=== PATIENT | male | born 1950 | race Caucasian/White ===

== ENCOUNTER 2017-06-15 08:15 | Inpatient (IN) | payer OTHER ==
--- NOTE | 2017-05-20 11:34 | PAT Medication Instructions ---
Service Date May 20, 2017. Current Home Medication List Aspirin (Aspirin Ec), 81 MG PO QPM Insulin Detemir (Levemir), 35 UNITS SQ QAM Insulin Detemir (Levemir), 30 UNITS SQ QPM Lisinopril (Zestril), 2.5 MG PO QPM Multivitamin (Multivitamin), 1 TAB PO QPM Simvastatin (Zocor), 10 MG PO QPM Medication Instructions For Your Scheduled Surgery - Hold the following medications the night before surgery: Lisinopril (Zestril), 2.5 MG PO QPM - Take the following medications as scheduled the night before surgery: Aspirin (Aspirin Ec), 81 MG PO QPM Insulin Detemir (Levemir), 30 UNITS SQ QPM Multivitamin (Multivitamin), 1 TAB PO QPM Simvastatin (Zocor), 10 MG PO QPM NOTHING TO EAT OR DRINK AFTER MIDNIGHT - For Insulin Dependent Diabetic patients: Test blood sugar A.M. of surgery. - If BLOOD SUGAR IS GREATER THAN 150, take half of your regular dose of: Insulin Detemir (Levemir) -- TAKE 17 UNITS - If BLOOD SUGAR IS LESS THAN 150, do not take any: Insulin Detemir ( Levemir) If you have any questions please call us at [phone] or [phone] or [phone]
--- NOTE | 2017-05-20 12:16 | DIAGNOSTIC IMAGING REPORT ---
CHEST 2 VIEWS ROUTINE CLINICAL HISTORY: 66 years-old Male presenting with preoperative assessment. TECHNIQUE: PA and lateral views of the chest were obtained. COMPARISON: None. FINDINGS: Cardiomediastinal silhouette normal. Suture margin noted in the left upper lobe. No focal opacity. No large effusion or pneumothorax. Osseous structures normal. Upper abdomen normal. IMPRESSION: 1. No acute cardiopulmonary disease. Electronically signed by: Luis Ness M.D. 05/20/2017 12:15 PM Dictated Date/Time: 05/20/2017 12:10 PM
[2017-05-20 12:23] LABS: BASO % 0.3 %; BASO ABS # 0.02 K/uL (0-0.2); EOS % 0.7 %; EOS ABS # 0.05 K/uL (0-0.5); HEMATOCRIT 44.3 % (42-52); HEMOGLOBIN 15.3 g/dL (14.0-18.0); IG# 0.02 K/uL (0.00-0.02); LYMPH % 15.3 %; LYMPH ABS # 1.05 K/uL (1.2-3.4); MEAN CELL VOLUME 92.1 fL (80-100); MEAN CORPUSCULAR HEMOGLOBIN 31.8 pg (25-34); MEAN CORPUSCULAR HGB CONC 34.5 g/dl (32-36); MEAN PLATELET VOLUME 10.8 fL (7.4-10.4); MONO % 6.9 %; MONO ABS # 0.47 K/uL (0.11-0.59); NEUT % 76.5 %; NEUT ABS # 5.24 K/uL (1.4-6.5); PLATELET COUNT 246 K/uL (130-400); RED CELL DISTRIBUTION WIDTH CV 12.4 % (11.5-14.5); RED CELL DISTRIBUTION WIDTH SD 42.1 fL (36.4-46.3); WHITE BLOOD COUNT 6.85 K/uL (4.8-10.8)
[2017-05-20 13:13] LABS: CALCIUM 9.6 mg/dl (8.5-10.1); CREATININE 1.22 mg/dl (0.60-1.40); POTASSIUM 5.1 mmol/L (3.5-5.1)
[2017-05-20 13:18] LABS: HEMOGLOBIN A1C 8.7 % (4.5-5.6)
[2017-06-15] VITALS (10 sets, daily range): BP systolic 103–137; BP diastolic 63–87; PULSE 70–115; TEMP 36.3–36.8; O2SAT 94–97
[~2017-06-15] VITALS: Ht 182.9 cm; Wt 100.1 kg
[~2017-06-15 08:15] MED LIST: ACETAMINOPHEN 500 MG TAB PO SCH; ASPI81TA28 PO; CEFAZOLIN 2000MG IV PUSH 15 ML IV SCH; CeleBREX 200 MG CAP PO SCH; GABAPENTIN 300 MG CAP PO SCH; LACTATED RINGER'S 1000ML 1,000 ML IV SCH; LISI-729 PO; LVMI SQ; MULT-506 PO; SIMV10TA2 PO; [UNRECOGNIZED DRUG - REMARK] SCH
[2017-06-15] MEDS ORDERED: MIDAZOLAM HCL 1 MG/ML 2ML VIAL ONE (09:45)
[2017-06-15] MEDS ORDERED: FENTANYL CITRATE INJ 50 MCG/1 ML 2 ML VIAL ONE ×4 (09:45→11:58)
--- NOTE | 2017-06-15 10:05 | History & Physical Bridge Note ---
H&P Re-Evaluation Bridge Note: I have examined the patient, reviewed the History & Physical and in the interval since the performance of the History & Physical I have noted the following changes of clinical significance: No changes noted
--- NOTE | 2017-06-15 10:06 | History and Physical ---
History & Physical Date Jun 15, 2017. Chief Complaint Back and leg pain History of Present Illness The patient is a 66 year old male with complaints of back and leg pain Additional History Hepatic Disease: No Endocrine Disorder: No Kidney Disease: No Hypertension: Yes Heart Disease: No Bleeding Tendencies: No Infectious Diseases: No Other: Diabetes Allergies Coded Allergies: No Known Allergies (Unverified , 06/15/17) Home Medications Scheduled Aspirin (Aspirin Ec), 81 MG PO QPM Insulin Detemir (Levemir), 35 UNITS SQ QAM Insulin Detemir (Levemir), 30 UNITS SQ QPM Lisinopril (Zestril), 2.5 MG PO QPM Multivitamin (Multivitamin), 1 TAB PO QPM Simvastatin (Zocor), 10 MG PO QPM Physical Examination Skin: warm/dry, no rash Eyes: normal inspection, EOMI, sclerae normal ENT: normal ENT inspection, pharynx normal Head: normocephalic, atraumatic Neck: supple, no adenopathy, trachea midline Respiratory/Chest: lungs clear, normal breath sounds, no respiratory distress Cardiovascular: regular rate, rhythm, no edema, no murmur Abdomen / GI: normal bowel sounds, non tender Back: normal inspection Extremities: normal inspection, normal range of motion Neurologic/Psych: no motor/sensory deficits, alert, normal reflexes, oriented x 3 Diagnosis Lumbar spinal stenosis with spondylolisthesis Plan of Treatment Lumbar decompression and fusion L3-S1
[2017-06-15] MEDS ORDERED: BUPIVACAINE/EPINEPHRINE 0.5% MPF 1:200,000 30 ML VIAL ONE (10:21)
[2017-06-15] MEDS ORDERED: BACITRACIN 50000 UNIT VIAL ONE (10:21)
[2017-06-15] MEDS ORDERED: HYDROmorphone INJ 2 MG/ML SYR/VIAL ONE ×3 (10:55→13:01)
[2017-06-15] MEDS ORDERED: LIDOCAINE HCL 2% 2 ML VIAL (20MG/ML) ONE (12:36)
[2017-06-15] MEDS ORDERED: ONDANSETRON INJ 2 MG/ML 2 ML VIAL ONE (12:36)
[2017-06-15] MEDS ORDERED: ROCURONIUM BROMIDE 10 MG/ML 5 ML VIAL IV ONE (12:36)
[2017-06-15] MEDS ORDERED: EpHEDrine SULFATE 50MG/5ML SYR ONE ×2 (12:36→13:03)
[2017-06-15] MEDS ORDERED: PROPOFOL IV EMULSION 10 MG/ML 20 ML VIAL IV ONE (12:36)
[2017-06-15] MEDS ORDERED: FLOSEAL HEMOSTATIC MATRIX 10ML TOP ONE (12:43)
--- NOTE | 2017-06-15 12:47 | [facility] Operative Report ---
Operative Report Operative Date Jun 15, 2017. Pre-Operative Diagnosis Lumbar spinal stenosis with spondylolisthesis Post-Operative Diagnosis Lumbar spinal stenosis with spondylolisthesis Procedure(s) Performed 1. Lumbar decompression medial facetectomies foraminotomies L2-3 L3-4 L4-5 L5-S1. #2 posterior spinal fusion L3-4 L4-5 L5-S1. #3 placement of posterior segmental instrumentation L3-S1. #4 interbody fusion L5-S1. #5 placement peek cage 14 x 26 mm at L5-S1. #6 placement of locally harvested morselized autograft in the posterior lateral gutters. #7 placement of infuse collagen sponge, Nast graft in the posterior lateral gutters and ostial amp in the interbody space. Surgeon Dr. Estiven Ferreira Dairy Lab Technician Surgeon(s) Parisa Cornell PA-C Estimated Blood Loss 450 mL Findings Severe spinal stenosis Specimens No pathology specimens per surgeon Anesthesia Type General Description of Procedure Patient was met with preoperatively case discussed all questions addressed. After informed consent obtained patient was taken to the operative suite underwent intubation and placed in a prone position on the José Miguel table on top of the [place]on frame. All bony prominences well-padded eyes inspected to ensure no external pressure placed upon them. This point the lumbar spine was prepped and draped in normal sterile fashion. Sharp dissection with the assistance of Bovie cautery was performed on July exposing the lamina and transverse processes of L3-L4-L5 and sacral ala bilaterally. From a caudal to cephalad fashion complete laminectomy of L5 L4 L3 and partial laminectomy of L2 was performed addressing severe lateral recess and foraminal stenosis. Pedicle screws were then placed in L3-L4-L5 and S1 levels bilaterally with the assistance of fluoroscopy and the appropriate size benjamin placed. Through a trans- foraminal put on left complete discectomy of L5-S1 was performed endplates created to subcortical bleeding bone and a 14 x 26 mm peek cage filled with ostium bone graft tapped in position. The rods were then locked in final position bilaterally. Cross-link locked into position. Transverse processes of L3-L4-L5 and the sacral ala burred to subcortical bleeding bone. Infuse collagen sponge master graft and locally harvested morselized autograft placed in the posterior lateral gutters. A 15 round HINA drain was inserted. Incision was closed with 1 Vicryl fascia 2-0 Vicryl substantially 4-0 Monocryl for fashion closure Steri-Strips sterile dressings placed. Patient will continue PACU stable condition. Please note Parisa Cornell was present throughout the entire procedure involved in patient positioning complex portions of the surgery and fashion closure. I attest to the content of the Intraoperative Record and any orders documented therein. Any exceptions are noted below.
[2017-06-15] MEDS ORDERED: SODIUM CHLORIDE 0.9% 1000ML 1,000 ML IV SCH (12:48)
--- NOTE | 2017-06-15 12:51 | DIAGNOSTIC IMAGING REPORT ---
LUMBAR SPINE 2 OR 3 VIEW CLINICAL HISTORY: L3-L5 DECOMP/FUSION/INTERBODY operative fusion TECHNIQUE: Image intensifier COMPARISON STUDY: None FINDINGS: Findings consistent with image intensifier utilization for an L3-S1 laminectomy and fusion. A disc spacer present at L5-S1. Alignment is anatomic. IMPRESSION: Anatomic alignment post L3-S1 decompression laminectomy and fusion. The above report was generated using voice recognition software. It may contain grammatical, syntax or spelling errors. Electronically signed by: Yousif Briscoe M.D. 06/15/2017 12:50 PM Dictated Date/Time: 06/15/2017 12:49 PM
[2017-06-15] MEDS ORDERED: FAMOTIDINE 20 MG TAB PO PRN (13:00)
[2017-06-15] MEDS ORDERED: NALOXONE HCL 0.4 MG/1 ML VIAL/CARP IV PRN ×2 (13:00)
[2017-06-15] MEDS ORDERED: ONDANSETRON INJ 2 MG/ML 2 ML VIAL IV PRN ×2 (13:00→13:45)
[2017-06-15] MEDS ORDERED: SOD PHOSPHATE/SOD BIPHOSPHATE ENEMA 132 ML BTL PR PRN (13:00)
[2017-06-15] MEDS ORDERED: DO NOT ADMINISTER FLU VACCINE PRN (13:00)
[2017-06-15] MEDS ORDERED: LORAZEPAM INJ 0.5 MG in SYRINGE 0.75 ML IV PRN (13:00)
[2017-06-15] MEDS ORDERED: hydrOXYzine HCL 25 MG TAB PO PRN (13:00)
[2017-06-15] MEDS ORDERED: DO NOT ADMINISTER PNEUMOCOCCAL VACCINE PRN (13:00)
[2017-06-15] MEDS ORDERED: PROMETHAZINE HCL INJ 12.5 MG in SODIUM CHLORIDE 0.9% 50ML 50 ML IV PRN (13:00)
[2017-06-15] MEDS ORDERED: LORAZEPAM 0.5 MG TAB PO PRN (13:00)
[2017-06-15] MEDS ORDERED: ALUMINUM/MAGNESIUM SUSP 30 ML UDC PO PRN (13:00)
[2017-06-15] MEDS ORDERED: ACETAMINOPHEN IV 100 ML IV PRN (13:00)
[2017-06-15] MEDS ORDERED: ACETAMINOPHEN 500 MG TAB PO PRN (13:00)
[2017-06-15] MEDS ORDERED: BISACODYL 10 MG SUPP PR PRN (13:00)
[2017-06-15] MEDS ORDERED: MAGNESIUM HYDROXIDE SUSP 30 ML UDC PO PRN (13:00)
[2017-06-15] MEDS ORDERED: METOCLOPRAMIDE HCL INJ 5 MG/ML 2 ML VIAL IV PRN (13:00)
[2017-06-15] MEDS ORDERED: NEOSTIGMINE METHYLSULFATE 1 MG/ML 10ML VIAL ONE (13:03)
[2017-06-15] MEDS ORDERED: KETOROLAC TROMETHAMINE 30 MG/ML VIAL ONE (13:03)
[2017-06-15] MEDS ORDERED: GLYCOPYRROLATE INJ 0.2 MG/ML VIAL ONE (13:03)
[2017-06-15] MEDS ORDERED: PHENYLEPHRINE 100MCG/ML 5ML SYR ONE (13:03)
[2017-06-15] MEDS ORDERED: ESMOLOL HCL 10 MG/ML 10 ML VIAL ONE (13:19)
[2017-06-15] MEDS: HYDROmorphone HCL 0.5MG/ML 50 ML CASSETTE IV PRN ×3 (13:29→22:57)
[2017-06-15] MEDS ORDERED: FENTANYL CITRATE INJ 50 MCG/1 ML 2 ML VIAL IV PRN (13:45)
[2017-06-15] MEDS ORDERED: EpHEDrine SULFATE INJ 50 MG/ML AMP IV PRN (13:45)
[2017-06-15] MEDS ORDERED: MEPERIDINE HCL 25 MG/ML CARP IV PRN (13:45)
[2017-06-15] MEDS ORDERED: ATROPINE SULFATE 0.1 MG/ML 5ML SYR IV PRN (13:45)
[2017-06-15] MEDS ORDERED: LABETALOL HCL IV 5 MG/ML 20ML IV PRN (13:45)
[2017-06-15] MEDS ORDERED: HYDROmorphone INJ 0.5 MG/0.5 ML SYR IV PRN (13:45)
--- NOTE | 2017-06-15 14:56 | Anesthesiology Progress Note ---
Anesthesia Post Op Note Date & Time Jun 15, 2017 at 14:56 Vital Signs Pain Intensity: 0.0 Vital Signs Past 12 Hours Date Time Temp Pulse Resp B/P (MAP) Pulse Ox O2 Delivery O2 Flow Rate FiO2 06/15/17 14:20 36.5 88 18 123/68 (86) 97 Nasal Cannula 4.0 06/15/17 14:00 36.5 87 16 123/73 96 Nasal Cannula 4 06/15/17 13:50 83 16 125/76 96 Nasal Cannula 4 06/15/17 13:40 68 16 132/76 98 Nasal Cannula 4 06/15/17 13:30 84 16 132/75 98 Oxymask 10 06/15/17 13:20 87 16 123/82 98 Oxymask 10 06/15/17 13:14 36.4 88 16 141/67 99 Oxymask 10 06/15/17 08:52 36.6 70 20 137/87 94 Room Air Notes Mental Status: alert / awake / arousable, participated in evaluation Pt Amnestic to Procedure: Yes Nausea / Vomiting: adequately controlled Pain: adequately controlled Airway Patency, RR, SpO2: stable & adequate BP & HR: stable & adequate Hydration State: stable & adequate Anesthetic Complications: no major complications apparent
[2017-06-15] MEDS: SODIUM CHLORIDE 0.9% 1000ML 1,000 ML IV SCH ×2 (15:18→22:00)
[2017-06-15] MEDS ORDERED: GLUCOSE 40% GEL 15 GM TUBE PO PRN (16:30)
[2017-06-15] MEDS ORDERED: GLUCAGON FOR INJ 1 MG VIAL SQ PRN (16:30)
[2017-06-15] MEDS ORDERED: DEXTROSE 50% 50 ML SYR IV PRN (16:30)
[2017-06-15] MEDS ORDERED: GLUCOSE 10 TABS/TUBE PO PRN (16:30)
--- NOTE | 2017-06-15 17:44 | Medical Consult ---
Consultation Date of Consultation: Jun 15, 2017. Attending Physician: Estiven Ferreira D.O. Reason for Consultation: Medical management History of Present Illness Pt is 66 y/o M with PMH DM II, HLD, spinal stenosis seen in medical consult after lumbar decompression and spinal fusion today by Dr. Ferreira. At this time patient states pain is well controlled. Reports no paresthesias or numbness of lower extremities and is moving lower extremities without difficulty. Denies any nausea or vomiting he is drinking water without difficulty. Last BM yesterday. Denies fever/chills, diaphoresis, ZUNIGA, dizziness, syncope, vision changes, neck pain, CP, SOB, orthopnea, palpitations, cough, sore throat, choking, otalgia, rhinorrhea, abdominal pain, extremity edema, rashes. Past Medical/Surgical History Medical Problems: (1) DM type 2 (diabetes mellitus, type 2) Status: Chronic (2) Hyperlipidemia Status: Chronic (3) Lumbar stenosis with neurogenic claudication Status: Chronic Surgical Problems: (1) History of spinal fusion Permanent Comment: 06/15/17 -History lumbar decompression and spinal fusion- Dr Ferreira Status: Resolved (2) Hx of thumb surgery Permanent Comment: History left thumb fracture and surgical repair Status: Resolved Family History Diabetes mellitus FH: CAD (coronary artery disease) Hypertension Social History Smoking Status: Former Smoker (Quit 25 years ago) Smokeless Tobacco Use: chews tobacco - 2 cans a week Alcohol Use: none Drug Use: none Allergies Coded Allergies: No Known Allergies (Unverified , 06/15/17) Current Inpatient Medications Current Inpatient Medications Medications (Trade) Dose Ordered Sig/Ryan Route Start Time Stop Time Status Last Admin Dose Admin Promethazine HCl 12.5 mg/Sodium Chloride 50.5 ml @ 202 mls/hr Q6H PRN IV 06/15/17 13:00 07/15/17 12:59 Ondansetron HCl (Zofran Inj) 4 mg Q6H PRN IV 06/15/17 13:00 07/15/17 12:59 Metoclopramide HCl (Reglan Inj) 10 mg Q6H PRN IV 06/15/17 13:00 07/15/17 12:59 Lorazepam (Ativan Tab) 0.5 mg Q8H PRN PO 06/15/17 13:00 07/15/17 12:59 Lorazepam 0.5 mg/ Syringe 1 ml @ 1 mls/min Q8H PRN IV 06/15/17 13:00 07/15/17 12:59 Pneumococcal Polysaccharide Vaccine 1 ea PRN PRN N/A 06/15/17 13:00 07/15/17 12:59 Influenza Virus Vacc Triv Types A&B 1 ea PRN PRN N/A 06/15/17 13:00 07/15/17 12:59 Polyethylene (Miralax Powder Packet) 17 gm Q6 PO 06/17/17 06:00 07/17/17 05:59 Bisacodyl (Dulcolax Supp) 10 mg DAILY PRN FL 06/15/17 13:00 07/15/17 12:59 Magnesium Hydroxide (Milk Of Magnesia Susp) 30 ml DAILY PRN PO 06/15/17 13:00 07/15/17 12:59 Hydromorphone HCl (Dilaudid Inj) 0.5-1mg prn moder... Q3H PRN IV 06/16/17 06:01 06/30/17 06:00 Oxycodone HCl (Roxicodone Immediate Rel Tab) 5-10mg prn moderate to sev... Q4H PRN PO 06/16/17 06:00 06/30/17 05:59 Cefazolin Sodium 2000 mg/Syringe 15 ml @ 3.75 mls/ min Q8H IV 06/15/17 19:00 06/16/17 03:03 Sodium Chloride 1,000 ml @ 150 mls/hr Q6H40M IV 06/15/17 12:48 07/15/17 12:47 06/15/17 15:18 150 MLS/HR Acetaminophen (Tylenol Tab) 1,000 mg Q8H PRN PO 06/15/17 13:00 07/15/17 12:59 Acetaminophen 100 ml @ 400 mls/hr Q8H PRN IV 06/15/17 13:00 07/15/17 12:59 Naloxone HCl (Narcan Inj) 0.1 mg Q5M PRN IV 06/15/17 13:00 07/15/17 12:59 Senna/Docusate Sodium (Senokot S Tab) 2 tab HS PO 06/15/17 21:00 07/15/17 20:59 Sodium Biphosphate/ Sodium Phosphate (Fleet Enema) 132 ml ONE PRN FL 06/15/17 13:00 07/15/17 12:59 Hydroxyzine HCl (Vistaril Tab) 25 mg Q8H PRN PO 06/15/17 13:00 07/15/17 12:59 Al Hydroxide/Mg Hydroxide (Maalox Susp) 30 ml Q6H PRN PO 06/15/17 13:00 07/15/17 12:59 Famotidine (Pepcid Tab) 20 mg Q12 PRN PO 06/15/17 13:00 07/15/17 12:59 Diphenhydramine HCl (Benadryl Cap) 25 mg Q6H PRN PO 06/15/17 13:00 07/15/17 12:59 Miscellaneous Information (Discontinue POLISHER DIAL) 1 ea 0600 ONCE N/A 06/16/17 06:00 06/16/17 06:01 Naloxone HCl (Narcan Inj) 0.1 mg Q5M PRN IV 06/15/17 13:00 06/16/17 06:00 Hydromorphone HCl (Dilaudid Route Sales Driver) 25 mg PRN PRN IV 06/15/17 13:00 06/16/17 06:00 06/15/17 14:23 25 MG Sodium Chloride 1,000 ml @ 15 mls/hr Q24H IV 06/15/17 12:48 06/16/17 06:00 Aspirin (Ecotrin Tab) 81 mg QPM PO 06/15/17 21:00 07/15/17 20:59 Lisinopril (Zestril Tab) 2.5 mg QPM PO 06/15/17 21:00 07/15/17 20:59 Simvastatin (Zocor Tab) 10 mg QPM PO 06/15/17 21:00 07/15/17 20:59 Fentanyl Citrate (Fentanyl Inj) 50 mcg Q5M PRN IV 06/15/17 13:45 06/15/17 19:00 Hydromorphone HCl (Dilaudid Inj) 0.5 mg Q5M PRN IV 06/15/17 13:45 06/15/17 19:00 Meperidine HCl (Demerol Inj) 25 mg Q5M PRN IV 06/15/17 13:45 06/15/17 19:00 Ondansetron HCl (Zofran Inj) 4 mg ONE PRN IV 06/15/17 13:45 06/15/17 19:00 Labetalol HCl (Normodyne IV) 5 mg Q5M PRN IV 06/15/17 13:45 06/15/17 19:00 Ephedrine Sulfate (EpHEDrine SULFATE INJ) 5 mg Q5M PRN IV 06/15/17 13:45 06/15/17 19:00 Atropine Sulfate (Atropine Sulfate 0.1mg/ml Inj) 0.5 mg Q1M PRN IV 06/15/17 13:45 06/15/17 19:00 Insulin Glargine (Lantus Solostar Pen) 30 units Q12 SC 06/15/17 21:00 07/15/17 20:59 Insulin Aspart (novoLOG ASPART) SLIDING SCALE If C... ACHS SC 06/15/17 17:15 07/15/17 17:14 Glucose (Glucose 40% Gel) 15-30 GRAMS 15 GRAMS... UD PRN PO 06/15/17 16:30 07/15/17 16:29 Glucose (Glucose Chew Tab) 4-8 Tablets 4 Tabl... UD PRN PO 06/15/17 16:30 07/15/17 16:29 Dextrose (Dextrose 50% 50ML Syringe) 25-50ML OF 50% DW IV FOR... UD PRN IV 06/15/17 16:30 07/15/17 16:29 Glucagon (Glucagon Inj) 1 mg UD PRN SQ 06/15/17 16:30 07/15/17 16:29 Review of Systems See HPI for pertinent positives & negatives. All other systems reviewed and were otherwise negative Physical Exam Date Time Temp Pulse Resp B/P (MAP) Pulse Ox O2 Delivery O2 Flow Rate FiO2 06/15/17 17:23 103 18 135/81 (99) 94 Nasal Cannula 2.0 06/15/17 16:23 36.3 100 18 131/74 (93) 96 Nasal Cannula 2.0 06/15/17 15:22 94 18 136/80 (98) 96 Nasal Cannula 4.0 06/15/17 14:30 Nasal Cannula 4.0 06/15/17 14:30 Nasal Cannula 06/15/17 14:20 36.5 88 18 123/68 (86) 97 Nasal Cannula 4.0 06/15/17 14:00 36.5 87 16 123/73 96 Nasal Cannula 4 06/15/17 13:50 83 16 125/76 96 Nasal Cannula 4 06/15/17 13:40 68 16 132/76 98 Nasal Cannula 4 06/15/17 13:30 84 16 132/75 98 Oxymask 10 06/15/17 13:20 87 16 123/82 98 Oxymask 10 06/15/17 13:14 36.4 88 16 141/67 99 Oxymask 10 06/15/17 08:52 36.6 70 20 137/87 94 Room Air General Appearance: WD/WN, no apparent distress Head: normocephalic, atraumatic Eyes: normal inspection, PERRL, sclerae normal ENT: hearing grossly normal, pharynx normal, + pertinent finding (Mucous membranes moist) Neck: supple, no JVD, trachea midline Respiratory/Chest: lungs clear, normal breath sounds, no respiratory distress Cardiovascular: regular rate, rhythm, no murmur, normal peripheral pulses Abdomen/GI: normal bowel sounds, non tender, soft Back: + pertinent finding (Surgical dressing in place) Extremities/Musculoskelatal: normal inspection, normal capillary refill, no pedal edema, non-tender, + pertinent finding (Distal pulses intact, sensation to light touch intact, pedal pushes and pulls intact bilaterally.) Neurologic/Psych: alert, normal mood/affect, oriented x 3 Skin: normal color, warm/dry Laboratory Results Last 24 Hours Test 06/15/17 08:48 06/15/17 14:14 Bedside Glucose 94 mg/dl 134 mg/dl Assessment & Plan Pt post op day# 0 S/P lumbar decompression spinal fusion by Dr Ferreira -pain management per ortho -wound management per ortho -PT/OT as appropriate -DVT prophylaxis per ortho -incentive spirometry -monitor H&H for acute blood loss anemia DM [id number] HA1c: 8.7 on 04/2017. BS -Holding Levemir -Lantus and NovoLog per protocol -Resume lisinopril tonight HLD -continue statin DVT Prophylaxis -Per ortho Disposition admitted [facility] Full code Follows with Dr Sukhdev Valdivia for routine care Pt was seen with Dr Odonnell. See addendum Patient will be followed by Dr. Ballesteros remaining hospital course ADDENDUM: I have seen and examined the patient and agree with the assessment and plan as stated above. Blas, DO Additional Copies To Jean-Paul Santizo M.D.
[2017-06-15] MEDS: INSULIN ASPART 100 UNITS/ML 3 ML PEN SC SCH ×2 (18:33→22:05)
[2017-06-15] MEDS: CEFAZOLIN IV 2,000 MG in SYRINGE 0 ML IV SCH (18:33)
[2017-06-15] MEDS: DOCUSATE SODIUM/SENNA 50/8.6MG TAB PO SCH (22:01)
[2017-06-15] MEDS: ASPIRIN 81 MG ECTAB PO SCH (22:01)
[2017-06-15] MEDS: SIMVASTATIN 10 MG TAB PO SCH (22:02)
[2017-06-15] MEDS: LISINOPRIL 2.5 MG TAB PO SCH (22:02)
[2017-06-15] MEDS: INSULIN GLARGINE SOLOSTAR 100 UNITS/ML 3 ML PEN SC SCH (22:06)
[2017-06-16 03:05] VITALS: BP 106/64; PULSE 80; TEMP 36.7; O2SAT 95
[2017-06-16] MEDS: CEFAZOLIN IV 2,000 MG in SYRINGE 0 ML IV SCH (03:09)
[2017-06-16] MEDS: SODIUM CHLORIDE 0.9% 1000ML 1,000 ML IV SCH (04:18)
[2017-06-16] MEDS ORDERED: DC PCA ONE (06:00)
[2017-06-16] MEDS ORDERED: HYDROmorphone INJ 0.5 MG/0.5 ML SYR IV PRN (06:01)
[2017-06-16 06:12] LABS: BASO % 0.1 %; BASO ABS # 0.01 K/uL (0-0.2); HEMATOCRIT 31.1 % (42-52); HEMOGLOBIN 10.2 g/dL (14.0-18.0); IG# 0.03 K/uL (0.00-0.02); LYMPH % 8.5 %; LYMPH ABS # 0.96 K/uL (1.2-3.4); MEAN CORPUSCULAR HEMOGLOBIN 30.2 pg (25-34); MEAN CORPUSCULAR HGB CONC 32.8 g/dl (32-36); MEAN PLATELET VOLUME 10.1 fL (7.4-10.4); MONO % 6.2 %; NEUT % 84.9 %; PLATELET COUNT 211 K/uL (130-400); RED CELL DISTRIBUTION WIDTH CV 12.9 % (11.5-14.5); RED CELL DISTRIBUTION WIDTH SD 43.6 fL (36.4-46.3)
[2017-06-16] MEDS ORDERED: NURSING VERBAL MED ORDER ONE (06:45)
[2017-06-16 06:48] LABS: CREATININE 1.27 mg/dl (0.60-1.40); POTASSIUM 4.7 mmol/L (3.5-5.1)
[2017-06-16] MEDS ORDERED: VOLUVEN IN NSS ONE (07:09)
[2017-06-16] MEDS ORDERED: RXC5 PO (07:39)
--- NOTE | 2017-06-16 07:40 | Discharge Instructions ---
Discharge Instructions Date of Service Jun 16, 2017. Admission Reason for Admission: Spinal Stenosis Discharge Discharge Diagnosis / Problem: lumbar stenosis Discharge Goals Goal(s): Improve function Activity Recommendations Activity Limitations: per Instructions/Follow-up section . Instructions / Follow-Up Instructions / Follow-Up ACTIVITY RECOMMENDATIONS: SELF CARE INSTRUCTIONS AFTER THORACIC/LUMBAR FUSIONS 1. You may walk to your tolerance. It is good exercise for your legs and back. Expect some back and intermittent leg aches and pains. 2. You may perform "counter-top" level activities (make a sandwich, anitra with a project, etc.). 3. No bending or lifting of more than 10 pounds or back twisting of any nature (roll like a log when turning in bed). 4. You may ride in a car for 20-30 minutes at a time. No driving until after your first visit with your doctor. 5. Frequent changes of position and restricting sitting to 30 minutes at a time will help limit the amount of back spasms and stiffness you may experience. 6. You may discontinue the use of ambulatory aids (cane, crutches, etc.) once your strength and confidence allow. 7. You may compliance examiner the shower and let water strike your incision when you arrive home at least once daily. Do not take a tub bath, sit in a hot tub or go into a swimming pool until after your first recheck in the office. SPECIAL CARE INSTRUCTIONS: VERY IMPORTANT TO READ AND REVIEW A. Your surgical incision has been closed with a cosmetic suture under the skin that will dissolve in about 6 weeks. In 14 days, you can use a pair of clean scissors and cut the suture that is left outside of the skin at the ends of your incision. 1. The small skin tapes can be removed 7 days after surgery if they have not fallen off by that point. 2. You may keep the wound open to air as much as possible to promote healing after post-op day number 5 unless told otherwise by your doctor. 3. If you think the wound looks like it is becoming infected (redness or worsening drainage) and/or you are experiencing fever, chill or worsening back pain and muscle spasms, contact the office so that we may evaluate you as soon as possible. B. Complications are uncommon, but please contact us if you have any signs or symptoms of: 1. wound infection (fever higher than 102.5 degrees F, redness, separation of wound, drainage, or increasing pain from the incision) 2. blood clots in legs (pain, swelling, redness and warmth in legs) 3. urinary tract infection (fever higher than 102.5 degrees F, burning upon urination or increased frequency of urination) 4. nerve problems (inability to walk on your toes or heels, numbness, loss of bowel or bladder control) 5. any other symptoms that concern you C. Please call the office at if you have any concerns or questions about your operation or recovery. D. No smoking! Smoking drastically decreases the chance of a solid fusion. E. Do not take any anti-inflammatory medications (Indocin, Advil, Motrin, Aspirin, Naprosyn, etc.) as these may inhibit the chance of a solid fusion. Tylenol is okay to take for pain. MANAGING PAIN AFTER SPINAL SURGERY 1. Narcotic medication is intended for short-term use and will be provided for surgical pain. Surgical pain usually lasts for a period of 4-6 weeks. Narcotic medication includes Percocet, Vicodin, Darvocet, Tylenol #3 or Lortab. 2. Longer-term pain is more appropriately treated with non-narcotic medication such as Tylenol ES. 3. Muscle spasm is not appropriately treated with narcotics. Muscle relaxers such as Soma, Flexeril or Skelaxin can be used along with Tylenol ES. 4. Remember that we all live with some "aches and pains". This is not unusual or uncommon after an injury or as we get older. a. Back pain is expected and may include muscle spasms for 4 to 6 weeks after surgery. The pain should gradually improve. If the pain worsens for no apparent reason, please contact the office. b. Intermittent leg pain may also be experienced and should not be concerned about unless it worsens for no apparent reason. If so, please contact the office. 5. We will provide appropriate medication within the normal guidelines of their prescribed use. We will also be very cautious and aware of potential abuse and extended duration of patients' medication needs. a. Pain medications are for your comfort and to assist with sleep and rest so that the tissue can heal. They are not provided in order to return to normal activity and should not be used through the day. To do so or worsening pain at night can result from ongoing tissue damage and development of tolerance to the prescribed medicine. 6. Please allow 2-3 days to process refills. Prescriptions will not be mailed but must be picked up at the office. FOLLOW UP VISIT: Keep your scheduled follow-up appointment. Any questions, please call the office at . Current Hospital Diet Patient's current hospital diet: Diabetes Type 2 Diet Discharge Diet Recommended Diet: Regular Diet Procedures Procedures Performed: 1. Lumbar decompression medial facetectomies foraminotomies L2-3 L3-4 L4-5 L5-S1. #2 posterior spinal fusion L3-4 L4-5 L5-S1. #3 placement of posterior segmental instrumentation L3-S1. #4 interbody fusion L5-S1. #5 placement peek cage 14 x 26 mm at L5-S1. #6 placement of locally harvested morselized autograft in the posterior lateral gutters. #7 placement of infuse collagen sponge, Nast graft in the posterior lateral gutters and ostial amp in the interbody space. Pending Studies Studies pending at discharge: no Laboratory Results Hemoglobin A1c Test 05/20/17 11:42 Range/Units Estimated Average Glucose 203 mg/dl Hemoglobin A1c 8.7 H 4.5-5.6 % Medical Emergencies . Who to Call and When: Medical Emergencies: If at any time you feel your situation is an emergency, please call 911 immediately. . Non-Emergent Contact Non-Emergency issues call your: Primary Care Provider . "Provider Documentation" section prepared by Estiven Ferreira. .
[2017-06-16 08:44] VITALS: BP 115/71; PULSE 103; TEMP 37.7; O2SAT 91
[2017-06-16] MEDS: OXYCODONE HCL IR 5 MG TAB (IMMEDIATE RELEASE) PO PRN ×3 (09:15→18:09)
[2017-06-16] MEDS: INSULIN ASPART 100 UNITS/ML 3 ML PEN SC SCH ×4 (09:21→21:00)
[2017-06-16] MEDS: INSULIN GLARGINE SOLOSTAR 100 UNITS/ML 3 ML PEN SC SCH ×2 (09:22→21:06)
[2017-06-16] MEDS ORDERED: KETOROLAC TROMETHAMINE 15 MG/ML VIAL IV. PRN (10:00)
[2017-06-16 10:16] VITALS: TEMP 36.9
--- NOTE | 2017-06-16 11:11 | Progress Note ---
Progress Note Date of Service Jun 16, 2017. Progress Note Patient's back pain is controlled leg pain markedly improved. Vital signs are stable. On exam he is sitting up at the bedside is good strength testing appears comfortable. Assessment status post lumbar decompression fusion. Plan at this time we will initiate physical therapy advance his bowel regiment anticipate home in the next few days.
[2017-06-16 12:18] VITALS: BP 113/61; PULSE 80; TEMP 36.7; O2SAT 93
[2017-06-16 15:31] VITALS: BP 127/65; PULSE 100; TEMP 36.7; O2SAT 90
--- NOTE | 2017-06-16 16:26 | Progress Note ---
Internal Med Progress Note Date of Service: Jun 16, 2017. Provider Documentation: SUBJECTIVE: The patient was seen and examined He is status post lumbar decompression and fusion Has a similar issue with low blood sugar this morning Denies any acute problem at this time OBJECTIVE: Vital Signs-as noted below Exam: General-no apparent distress at rest Eyes-normal ENT-normal Neck-supple Lungs-clear to auscultate bilaterally Heart-regular, no murmur appreciated Abdomen-benign, nontender, bowel sounds present Extremities-trace edema bilaterally Neuro-AAO 3 No focal neuro deficit Lab data as noted below. ASSESSMENT & PLAN: Pt post op day# 1 S/P lumbar decompression spinal fusion by Dr Ferreira -pain management per ortho -wound management per ortho -PT/OT as appropriate -DVT prophylaxis per ortho -incentive spirometry -monitor H&H for acute blood loss anemia-10.2 today .Was 15 before admission -remains stable -recheck cbc in am DM [id number] HA1c: 8.7 on 04/2017. BS -Holding Levemir -Lantus and NovoLog per protocol -Resume lisinopril tonight -Blood sugar was low this AM responded to Oral sugar supplement HLD -continue statin DVT Prophylaxis -Per ortho Disposition admitted MedSurg Full code Follows with Dr Santizo - Skip for routine care Vital Signs: Date Time Temp Pulse Resp B/P (MAP) Pulse Ox O2 Delivery O2 Flow Rate FiO2 06/16/17 15:31 36.7 100 16 127/65 (85) 90 Room Air 06/16/17 12:18 36.7 80 18 113/61 (78) 93 Room Air 06/16/17 10:16 36.9 06/16/17 08:44 37.7 103 18 115/71 (86) 91 Room Air 06/16/17 07:22 Room Air 06/16/17 03:05 36.7 80 18 106/64 (78) 95 Nasal Cannula 2.0 06/15/17 23:30 96 Nasal Cannula 2.0 06/15/17 22:50 36.8 100 16 103/66 (78) 96 Nasal Cannula 2.0 06/15/17 22:02 102 111/63 (79) 06/15/17 20:00 115 94 Room Air 06/15/17 19:40 36.8 110 18 118/73 (88) 95 Nasal Cannula 2.0 06/15/17 17:23 103 18 135/81 (99) 94 Nasal Cannula 2.0 06/15/17 16:23 36.3 100 18 131/74 (93) 96 Nasal Cannula 2.0 Lab Results: Results Past 24 Hours Test 06/15/17 17:21 06/15/17 20:37 06/16/17 05:37 06/16/17 08:17 Range/Units Bedside Glucose 190 238 198 70-99 mg/dl White Blood Count 11.30 4.8-10.8 K/uL Red Blood Count 3.38 4.7-6.1 M/uL Hemoglobin 10.2 14.0-18.0 g/dL Hematocrit 31.1 42-52 % Mean Corpuscular Volume 92.0 80-100 fL Mean Corpuscular Hemoglobin 30.2 25-34 pg Mean Corpuscular Hemoglobin Concent 32.8 32-36 g/dl Platelet Count 211 130-400 K/uL Mean Platelet Volume 10.1 7.4-10.4 fL Neutrophils (%) (Auto) 84.9 % Lymphocytes (%) (Auto) 8.5 % Monocytes (%) (Auto) 6.2 % Eosinophils (%) (Auto) 0.0 % Basophils (%) (Auto) 0.1 % Neutrophils # (Auto) 9.60 1.4-6.5 K/uL Lymphocytes # (Auto) 0.96 1.2-3.4 K/uL Monocytes # (Auto) 0.70 0.11-0.59 K/uL Eosinophils # (Auto) 0.00 0-0.5 K/uL Basophils # (Auto) 0.01 0-0.2 K/uL RDW Standard Deviation 43.6 36.4-46.3 fL RDW Coefficient of Variation 12.9 11.5-14.5 % Immature Granulocyte % (Auto) 0.3 % Immature Granulocyte # (Auto) 0.03 0.00-0.02 K/uL Sodium Level 136 136-145 mmol/L Potassium Level 4.7 3.5-5.1 mmol/L Chloride Level 106 98-107 mmol/L Carbon Dioxide Level 26 21-32 mmol/L Anion Gap 4.0 3-11 mmol/L Blood Urea Nitrogen 28 7-18 mg/dl Creatinine 1.27 0.60-1.40 mg/dl Est Creatinine Clear Calc Drug Dose 69.1 ml/min Estimated GFR () 67.3 Estimated GFR (Non- 58.1 BUN/Creatinine Ratio 21.8 10-20 Random Glucose 165 70-99 mg/dl Calcium Level 8.0 8.5-10.1 mg/dl Hepatitis C Antibody Screen NEG NEG Test 06/16/17 12:20 06/16/17 15:33 06/16/17 16:07 Range/Units Bedside Glucose 127 56 91 70-99 mg/dl
[2017-06-16] MEDS: DOCUSATE SODIUM/SENNA 50/8.6MG TAB PO SCH (21:02)
[2017-06-16] MEDS: LISINOPRIL 2.5 MG TAB PO SCH (21:02)
[2017-06-16] MEDS: SIMVASTATIN 10 MG TAB PO SCH (21:02)
[2017-06-16] MEDS: ASPIRIN 81 MG ECTAB PO SCH (21:02)
[2017-06-16 23:40] VITALS: BP 116/69; PULSE 90; TEMP 37.1; O2SAT 92
[2017-06-17] MEDS: POLYETHYLENE (MIRALAX) 17 GM PACK PO SCH ×4 (05:53→23:20)
[2017-06-17 06:25] LABS: HEMATOCRIT 30.5 % (42-52); HEMOGLOBIN 10.1 g/dL (14.0-18.0); MEAN CELL VOLUME 92.1 fL (80-100); MEAN CORPUSCULAR HEMOGLOBIN 30.5 pg (25-34); MEAN CORPUSCULAR HGB CONC 33.1 g/dl (32-36); MEAN PLATELET VOLUME 9.9 fL (7.4-10.4); PLATELET COUNT 192 K/uL (130-400); RED CELL DISTRIBUTION WIDTH SD 43.7 fL (36.4-46.3)
[2017-06-17 06:57] VITALS: BP 123/70; PULSE 81; TEMP 36.9; O2SAT 92
[2017-06-17] MEDS: OXYCODONE HCL IR 5 MG TAB (IMMEDIATE RELEASE) PO PRN ×2 (07:37→17:49)
[2017-06-17] MEDS: INSULIN ASPART 100 UNITS/ML 3 ML PEN SC SCH ×4 (07:42→20:44)
[2017-06-17] MEDS: INSULIN GLARGINE SOLOSTAR 100 UNITS/ML 3 ML PEN SC SCH (07:43)
--- NOTE | 2017-06-17 08:17 | Progress Note ---
Progress Note Date of Service Jun 17, 2017. Progress Note Patient's back pain is controlled. Leg pain markedly improved. Vital signs are stable. On exam his good strength testing appears comfortable. Assessment status post multilevel lumbar decompression fusion per plan at this time will continue with physical therapy today anticipate discharge home Wednesday.
[2017-06-17 08:33] VITALS: BP 114/65; PULSE 98
--- NOTE | 2017-06-17 08:54 | Clinical Documentation Query ---
CLINICAL DOCUMENTATION QUERY 66 yo male admitted with spinal stenosis and s/p fusion. Hgb at admission was 15.3 and trended down to 10.1 after surgery. Estimated blood loss and HINA drain = 1105. In your clinical opinion is this patient being managed for: ( + ) Expected acute blood loss anemia ( ) Not Agree ( ) Other explanation of clinical findings (Please Explain) ( ) Unable to determine (Please Define) ( ) Need to Discuss The medical record reflects the following clinical findings, treatment, and risk factors. Clinical Indicators: As above Treatment: Type and screen 2 units PRBCs, serial CBCs Risk Factors: S/P surgical event Please clarify and document your clinical opinion in the progress notes and discharge summary. Terms such as "probable", "suspected", "likely", "questionable", "possible", or "still to be ruled out" are acceptable. IF IN AGREEMENT, YOU MUST DOCUMENT ABOVE DIAGNOSTIC STATEMENT IN DAILY PROGRESS NOTES AND DISCHARGE SUMMARY. This document is not part of the patient's record. Thank You, Karen Byrnes RN [phone]
[2017-06-17 13:48] VITALS: Ht 182.9 cm; Wt 100.1 kg
--- NOTE | 2017-06-17 14:08 | Progress Note ---
Internal Med Progress Note Date of Service: Jun 17, 2017. Provider Documentation: SUBJECTIVE: The patient was seen and examined He is status post lumbar decompression and fusion Has a similar issue with low blood sugar this morning 06/16 and again today Denies any acute problem at this time Will give 20 of Lantus this PM OBJECTIVE: Vital Signs-as noted below Exam: General-no apparent distress at rest Eyes-normal ENT-normal Neck-supple Lungs-clear to auscultate bilaterally Heart-regular, no murmur appreciated Abdomen-benign, nontender, bowel sounds present Extremities-trace edema bilaterally Neuro-AAO 3 No focal neuro deficit Lab data as noted below. ASSESSMENT & PLAN: Pt post op day# 2 S/P lumbar decompression spinal fusion by Dr Ferreira -pain management per ortho -wound management per ortho -PT/OT as appropriate -DVT prophylaxis per ortho -incentive spirometry Expected Acute Blood Loss Anemia -monitor H&H for acute blood loss anemia-10.2 today .Was 15 before admission -recheck cbc in am-remains stable DM [id number] HA1c: 8.7 on 04/2017. BS -Holding Levemir -Lantus and NovoLog per protocol -Resume lisinopril tonight -Blood sugar was low this AM responded to Oral sugar supplement -Blood sugar was noted to be low again today 06/17 -Likely due to use of SSI on top of the usual doses of Lantus -will not change the OP insulin dose HLD -continue statin DVT Prophylaxis -Per ortho Disposition admitted MedSurg Full code Follows with Dr Sukhdev Valdivia for routine care Vital Signs: Date Time Temp Pulse Resp B/P (MAP) Pulse Ox O2 Delivery O2 Flow Rate FiO2 06/18/17 07:15 Room Air 06/18/17 06:18 37.0 77 16 125/70 (88) 94 Room Air 06/17/17 23:15 Room Air 06/17/17 23:13 36.8 74 16 107/61 (76) 95 Room Air 06/17/17 16:30 Room Air 06/17/17 15:17 36.8 98 18 114/68 (83) 94 Room Air Lab Results: Results Past 24 Hours Test 06/17/17 12:13 06/17/17 12:29 06/17/17 12:54 06/17/17 17:14 Range/Units Bedside Glucose 59 55 116 201 70-99 mg/dl Test 06/17/17 20:38 06/18/17 06:35 Range/Units Bedside Glucose 168 123 70-99 mg/dl
[2017-06-17 15:17] VITALS: BP 114/68; PULSE 98; TEMP 36.8; O2SAT 94
[2017-06-17] MEDS: LISINOPRIL 2.5 MG TAB PO SCH (20:39)
[2017-06-17] MEDS: DOCUSATE SODIUM/SENNA 50/8.6MG TAB PO SCH (20:39)
[2017-06-17] MEDS: SIMVASTATIN 10 MG TAB PO SCH (20:39)
[2017-06-17] MEDS: ASPIRIN 81 MG ECTAB PO SCH (20:40)
[2017-06-17] MEDS ORDERED: INSULIN GLARGINE SOLOSTAR 100 UNITS/ML 3 ML PEN SC SCH (21:00)
[2017-06-17 23:13] VITALS: BP 107/61; PULSE 74; TEMP 36.8; O2SAT 95
[2017-06-18] MEDS: OXYCODONE HCL IR 5 MG TAB (IMMEDIATE RELEASE) PO PRN (05:05)
[2017-06-18] MEDS: POLYETHYLENE (MIRALAX) 17 GM PACK PO SCH ×2 (05:05→12:11)
[2017-06-18 06:18] VITALS: BP 125/70; PULSE 77; TEMP 37; O2SAT 94
[2017-06-18] MEDS: INSULIN ASPART 100 UNITS/ML 3 ML PEN SC SCH ×2 (07:24→12:00)
[2017-06-18] MEDS: INSULIN GLARGINE SOLOSTAR 100 UNITS/ML 3 ML PEN SC SCH (07:26)
[2017-06-18] MEDS ORDERED: BISACODYL 10 MG SUPP PR STA (11:32)
[2017-06-18 13:14] VITALS: BP 125/70; PULSE 77; TEMP 37; O2SAT 94
--- NOTE | 2017-06-18 13:57 | Discharge Summary ---
Orthopedic Discharge Summary Admission Date/Reason Jun 15, 2017 at 10:00 Spinal Stenosis. Discharge Date/Disposition Jun 18, 2017 Home with services Diagnosis Principal Diagnosis: Lumbar spinal stenosis with neurogenic claudication Admission Physical Exam As per Admitting History & Physical. Hospital Course Patient underwent lumbar decompression fusion tolerated this well was taken to the orthopedic floor postoperatively. Postop day #1 he was up and amatory progressed the postop day #2. Postop day #3 pain was well controlled he was subsequently discharged home with home health. Discharge orders and instructions found in the chart for further review. Discharge Instructions Please refer to the electronic Patient Visit Report (Discharge Instructions) for additional information.
--- NOTE | 2017-06-18 18:01 | Progress Note ---
Internal Med Progress Note Date of Service: Jun 18, 2017. Provider Documentation: SUBJECTIVE: The patient was seen and examined He is status post lumbar decompression and fusion Has a similar issue with low blood sugar this morning 06/16 and again today No more Hypoglycemic episode OBJECTIVE: Vital Signs-as noted below Exam: General-no apparent distress at rest Eyes-normal ENT-normal Neck-supple Lungs-clear to auscultate bilaterally Heart-regular, no murmur appreciated Abdomen-benign, nontender, bowel sounds present Extremities-trace edema bilaterally Neuro-AAO 3 No focal neuro deficit Lab data as noted below. ASSESSMENT & PLAN: Pt post op day# 3 S/P lumbar decompression spinal fusion by Dr Ferreira -pain management per ortho -wound management per ortho -PT/OT as appropriate -DVT prophylaxis per ortho-doing fine -incentive spirometry -likely to be discharged today Expected Acute Blood Loss Anemia -monitor H&H for acute blood loss anemia-10.2 today .Was 15 before admission -recheck cbc in am-remains stable DM [id number] HA1c: 8.7 on 04/2017. BS -Holding Levemir -Lantus and NovoLog per protocol -Resume lisinopril tonight -Blood sugar was low this AM responded to Oral sugar supplement -Blood sugar was noted to be low again today 06/17 -Likely due to use of SSI on top of the usual doses of Lantus -will not change the OP insulin dose -no more hypoglycemic episodes HLD -continue statin DVT Prophylaxis -Per ortho Disposition Full code Follows with Dr Sukhdev Valdivia for routine care Medically stable to be discharged Vital Signs: Date Time Temp Pulse Resp B/P (MAP) Pulse Ox O2 Delivery O2 Flow Rate FiO2 06/18/17 13:14 37.0 77 16 94 Room Air 06/18/17 07:15 Room Air 06/18/17 06:18 37.0 77 16 125/70 (88) 94 Room Air 06/17/17 23:15 Room Air 06/17/17 23:13 36.8 74 16 107/61 (76) 95 Room Air Lab Results: Results Past 24 Hours Test 06/17/17 20:38 06/18/17 06:35 06/18/17 12:07 Range/Units Bedside Glucose 168 123 182 70-99 mg/dl
== END 2017-06-18 14:33 | disposition home health service (06) | DRG 454 ==
LOC: C.ACU 08:15 → C.3E 10:00 → ENRESERV 13:41
PROVIDERS: ADMIT Orthopaedic Surgery Orthopaedic Surgery of the Spine; ATTEND Orthopaedic Surgery Orthopaedic Surgery of the Spine
PROC: 0SG30AJ Fusion of Lumbosacral Joint with Interbody Fusion Device, Posterior Approach, Anterior Column, Open Approach (ICD-10-PCS; principal; 2017-06-15 10:15)
PROC: 0ST40ZZ Resection of Lumbosacral Disc, Open Approach (ICD-10-PCS; principal; 2017-06-15 10:15)
PROC: 0SG3071 Fusion of Lumbosacral Joint with Autologous Tissue Substitute, Posterior Approach, Posterior Column, Open Approach (ICD-10-PCS; principal; 2017-06-15 10:15)
PROC: 0SG1071 Fusion of 2 or more Lumbar Vertebral Joints with Autologous Tissue Substitute, Posterior Approach, Posterior Column, Open Approach (ICD-10-PCS; principal; 2017-06-15 10:15)
DX: M48.061 Spinal stenosis, lumbar region without neurogenic claudication (principal); D62 Acute posthemorrhagic anemia; M43.16 Spondylolisthesis, lumbar region; E11.649 Type 2 diabetes mellitus with hypoglycemia without coma; I10 Essential (primary) hypertension; E78.5 Hyperlipidemia, unspecified; F17.220 Nicotine dependence, chewing tobacco, uncomplicated; E66.9 Obesity, unspecified; Z68.29 Body mass index [BMI] 29.0-29.9, adult; Z79.4 Long term (current) use of insulin; Z79.82 Long term (current) use of aspirin; Z79.899 Other long term (current) drug therapy; Z83.3 Family history of diabetes mellitus; Z82.49 Family history of ischemic heart disease and other diseases of the circulatory system